=== PATIENT | male | born 1930 | race Caucasian/White ===

== ENCOUNTER 2017-12-02 12:33 | Emergency (ER) | payer MEDICARE, OTHER ==
[~2017-12-02] VITALS: Ht 172.7 cm; Wt 220.0 kg
[~2017-12-02 12:33] MED LIST: ASA LO-DOSE81 MG OR; CEFEPIME2 GM IV; CENTRUM PO; CHILD ASA81 MG OR; CIPRO XR500 M2 PO; CIPRO500 MG OR; COZAAR100 MG OR; CRANBERRY300 MG PO; ENTRESTO 24-261 TAB PO; FEXOFENADINE180 MG OR; FLOMAX0.4 MG OR; HYDROCO/APAP1 TA9 PO; LEVEMIR100 UNIT/M SC; LEVOTHYROXIN75 MCG PO; LISINOPRIL2.5 MG PO; METFORMIN1000 MG OR; METFORMIN500 M1 OR; METOPROL TAR25 MG PO; METOPROLOL50 MG OR; NASONEX50 MCG/AC; NEXIUM40 M1 OR; PROBIOTI2 PO; SIMVASTATIN20 MG PO; STOOL SOFTENER100 MG PO; TRAVATAN0.0041 OU; TROSPIUM CL20 MG PO; VYTORIN 10/201 TAB OR; XARELTO10 MG PO; ZOLPIDEM5 M1 PO
[2017-12-02 14:25] VITALS: BP 102/55
== END 2017-12-02 14:25 | disposition home or self-care (01) ==
LOC: ED 12:33
DX: T83.098A Other mechanical complication of other urinary catheter, initial encounter (principal)